=== PATIENT | female | born 1955 ===

== ENCOUNTER 2018-10-14 10:08 | Emergency (ER) | payer MEDICAID, OTHER ==
[2018-10-14 10:17] VITALS: BP 162/98; PULSE 77; RESP 18; TEMP 98.5; O2SAT 95
--- NOTE | 2018-10-14 11:13 | C.PDOC ---
History Of Present Illness 63 y/o female presents to the ED for evaluation of right thumb injury sustained 4 days ago. Patient states the thumb was accidentally a caught in a car door. She complains of pain and swelling under the nail. Denies any discharge or redness. Time Seen by Provider: 10/14/18 11:05 Chief Complaint (Nursing): Finger,Hand,&Wrist History Per: Patient History/Exam Limitations: no limitations Onset/Duration Of Symptoms: Days (x4) Current Symptoms Are (Timing): Still Present Past Medical History Reviewed: Historical Data, Nursing Documentation, Vital Signs Vital Signs: Last Vital Signs Temp 98.5 F 10/14/18 10:12 Pulse 77 10/14/18 10:12 Resp 18 10/14/18 10:12 BP 162/98 H 10/14/18 10:12 Pulse Ox 95 10/14/18 10:12 - Medical History PMH: HTN, Hypercholesterolemia, Hypothyroidism - [facility] Procedures PHYSICAL THERAPY NEC (04/14/15) Family History: States: No Known Family Hx - Social History Hx Alcohol Use: No Hx Substance Use: No Review Of Systems Except As Marked, All Systems Reviewed And Found Negative. Constitutional: Negative for: Fever Musculoskeletal: Positive for: Hand Pain (Right thumb pain and swelling under nail) Skin: Negative for: Rash Neurological: Negative for: Weakness, Numbness, Incoordination Physical Exam - Physical Exam Appears: Non-toxic, No Acute Distress Skin: Warm, Dry Head: Atraumatic, Normacephalic Eye(s): bilateral: Normal Inspection Neck: Normal ROM Chest: Symmetrical Respiratory: No Accessory Muscle Use, Other (NARD) Extremity: Normal ROM (with full AROM of the right digits without difficulty), Capillary Refill (less than 2sec), No Deformity, Swelling (+ Subungual hematoma to the right thumb, no paronychia or erythema present) Pulses: Left Radial: Normal, Right Radial: Normal Neurological/Psych: Oriented x3, Normal Speech, Normal Motor, Normal Sensation, Other (No focal deficits) ED Course And Treatment O2 Sat by Pulse Oximetry: 95 (RA) Pulse Ox Interpretation: Normal - Other Rad R THUMB X-Ray: Interpreted by Me (NEG) Medical Decision Making Medical Decision Making: Impression: Subungual hematoma, right 1st digit Initial Plan: * Right hand x-ray * Wound care Counseled patient regarding x-ray results and wound care instructions. Advised to follow up hand specialist for further eval, referral and field appraiser service info provided. Disposition Counseled Patient/Family Regarding: Studies Performed, Diagnosis, Need For Followup - Disposition Referrals: [facility] [Outside] [facility] [Outside] Curtis Chandra MD [Staff Provider] - Disposition: HOME/ ROUTINE Disposition Time: 11:11 Condition: IMPROVED Additional Instructions: Hematoma Subungueal Un hematoma subungueal es ynes debajo de la ua. Puede ocurrir cuando se golpea o aplasta de la rosa dedo o dedo del pie. Hace que la ua se stuart chas. En algunos casos, puede fracturar el hueso debajo de la ua. Si el moretn es pequeo y no es demasiado doloroso, se curar sin tratamiento. Si el moretn es makenna y doloroso, es posible que deba drenar la ynes. Si ryan gran venice de la ua est daada, es posible que de la rosa mdico quiera quitarla. Si l o hannah no radha la ua, puede aflojarse o caerse en las prximas 2 semanas. En giselle todos los casos, la ua volver a crecer desde el venice debajo de la cutcula llamada matriz. Hennessey teri algunas semanas para comenzar y se completa en aproximadamente 4 a 6 meses para ryan ua y 12 meses para ryan ua. Si se da el lecho ungueal o la matriz, la ua puede volver a crecer con ryan forma spera o irregular. A veces la ua no puede volver a crecer en absoluto. Cuidados en el hogar Las siguientes pautas lo ayudarn a cuidar de la rosa herida en el hogar: Aplique ryan bolsa de hielo (cubitos de hielo en ryan bolsa de plstico, envuelta en ryan toalla delgada) mariano no ms de 20 minutos cada 3 a 6 horas mariano los primeros 1 a 2 branham. Contine esto, segn sea necesario, de 3 a 4 veces al da hasta que desaparezca el dolor y la hinchazn. Atencin de seguimiento Vivienne un seguimiento con de la rosa mdico, o segn lo aconsejado. Si la ua fue drenada, existe un pequeo riesgo de infeccin. Observe atentamente las cameron que se enumeran a continuacin. Cundo buscar consejo mdico. Llame a de la rosa mdico de inmediato si ocurre alguno de estos sntomas: Aumento del enrojecimiento alrededor de la ua. Aumento del dolor local o hinchazn Pus drenando de la ua Fiebre de 100.4F (38C) o ms, o yani lo indique de la rosa proveedor de atencin mdica Forms: Gen Discharge Inst [place]ran, Broadband Voice ([place]orran) - Clinical Impression Clinical Impression: Subungual hematoma - Scribe Statement The provider has reviewed the documentation as recorded by the Scribe Alyce Herrera Provider Attestation: All medical record entries made by the Scribe were at my direction and personally dictated by me. I have reviewed the chart and agree that the record accurately reflects my personal performance of the history, physical exam, medical decision making, and the department course for this patient. I have also personally directed, reviewed, and agree with the discharge instructions and disposition. Orthopedic Care Application Of:: Finger Splint
--- NOTE | 2018-10-14 11:40 | RAD ---
Date of service: 10/14/2018 PROCEDURE: Right Thumb radiographs. HISTORY: TRAUMA COMPARISON: None. TECHNIQUE: AP radiograph of the right hand, as well as spot oblique and lateral images of thumb were obtained. FINDINGS: RIGHT THUMB: No fracture or lytic lesion. First metacarpal phalangeal 1st interphalangeal joint space narrowing. Spurring most notable at 1st interphalangeal joint. JOINTS: Arthrosis as above SOFT TISSUES: Normal. OTHER FINDINGS: None. 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 No fracture or lytic lesion appreciated
== END 2018-10-14 11:32 | disposition home or self-care (01) ==
LOC: C.ER 10:08
DX: S60.111A Contusion of right thumb with damage to nail, initial encounter (principal); W23.0XXA Caught, crushed, jammed, or pinched between moving objects, initial encounter; Y92.9 Unspecified place or not applicable